=== PATIENT | female | born 1930 | race Two or more races ===

== ENCOUNTER → 2016-07-09 | Outpatient (CLI) | payer OTHER, MEDICAID | LOC: FIMAGING 11:14 | PROVIDERS: ATTEND Psychiatry & Neurology Neurology | DX: G30.1 Alzheimer's disease with late onset (principal); F02.80 Dementia in other diseases classified elsewhere, unspecified severity, without behavioral disturbance, psychotic disturbance, mood disturbance, and anxiety ==